=== PATIENT | female | born 2000 | race African-American/Black ===

== ENCOUNTER 2024-11-11 15:36 | Emergency (ER) | payer OTHER ==
[~2024-11-11] VITALS: Ht 165.1 cm; Wt 150.9 kg
[2024-11-11 16:38] VITALS: TEMP 98.1
[2024-11-11] MEDS: BACITRACIN 0.9 GM PACKET OINTMENT TP ONE (16:57)
[2024-11-11] MEDS: ACETAMINOPHEN 500 MG TABLET PO ONE (16:57)
[2024-11-11 19:02] LABS: BASOPHILS % (AUTO) 0.4 % (0.0-2.0); HEMATOCRIT 44.1 % (36-46); HEMOGLOBIN 14.4 g/dL (12.0-16.0); LYMPHOCYTES # (AUTO) 1.6 K/uL (1.0-4.8); LYMPHOCYTES % (AUTO) 15.6 % (22.0-44.0); MEAN CORPUSCULAR HEMOGLOBIN 27.1 pg (26.0-34.0); MEAN CORPUSCULAR HGB CONC 32.6 G/dL (31.0-37.0); MEAN CORPUSCULAR VOLUME 83 fL (80-100); MONOCYTES # (AUTO) 0.3 K/uL (0.1-1.0); MONOCYTES % (AUTO) 3.5 % (2.0-9.0); NEUTROPHILS # (AUTO) 7.9 K/uL (1.8-7.7); NEUTROPHILS % (AUTO) 79.5 % (40.0-70.0); PLATELET COUNT (AUTO) 286 K/uL (150-450); RED BLOOD CELL COUNT(AUTO) 5.31 MIL/uL (4.00-5.20); RED CELL DISTRIBUTION WIDTH 15.5 % (11.5-14.5); WHITE BLOOD COUNT (AUTO) 9.9 K/uL (4.5-11.0)
[2024-11-11 19:12] LABS: ANION GAP 7 mmol/L (8-16); CALCIUM, TOTAL 8.1 mg/dL (8.8-10.5); CARBON DIOXIDE 26 mmol/L (22-29); CHLORIDE 101 mmol/L (98-107); CREATININE 0.89 mg/dL (0.60-1.30); GLOMERULAR FILTR. RATE CALC > 60 mL/min (>60); GLUCOSE,RANDOM 125 mg/dL (70-110); POTASSIUM 3.6 mmol/L (3.5-5.1); SODIUM SERUM 134 mmol/L (136-145); UREA NITROGEN, BLOOD 9 mg/dL (7-18)
[2024-11-11 19:20] LABS: B-TYPE NATRIURETIC PEPTIDE 19 pg/mL (0-100)
[2024-11-11 19:22] LABS: TROPONIN I-HIGH SENSITIVITY Less Than 4 ng/L (<51)
[2024-11-11 19:37] LABS: ALANINE AMINOTRANSFERASE 14 U/L (12-78); ALBUMIN 2.7 g/dL (3.4-5.0); ALKALINE PHOSPHATASE 55 U/L (46-116); ASPARTATE AMINOTRANSFERASE 18 U/L (15-37); BILIRUBIN,TOTAL 0.5 mg/dL (0.1-1.0); CREATINE KINASE, TOTAL ONLY 154 U/L (26-192); TOTAL PROTEIN, SERUM 5.7 g/dL (6.4-8.2)
[2024-11-11 19:55] VITALS: BP 118/75; PULSE 76; RESP 16; O2SAT 100
== END 2024-11-11 19:56 | disposition home or self-care (01) ==
LOC: EMS 15:36
DX: R55 Syncope and collapse (principal); I95.9 Hypotension, unspecified; F41.9 Anxiety disorder, unspecified
CPT/HCPCS: 71045; 80048; 80076; 82550; 83880; 84484; 84703; 85025; 93005; 99285; 36415-L1; 36415-TC